=== PATIENT | male | born 1965 | race African-American/Black ===

== ENCOUNTER 2022-05-06 13:34 | Emergency (ER) | payer BC ==
[~2022-05-06] VITALS: Ht 185.4 cm; Wt 120.5 kg
[2022-05-06 13:37] VITALS: BP 151/87
[2022-05-06] MEDS: KETOROLAC TROMETHAMINE 30 MG/ML VIAL IM ONE ×2 (15:07→15:11)
[2022-05-06] MEDS: BACLOFEN 10 MG TABLET PO ONE ×2 (15:07→15:11)
[2022-05-06] MEDS: LIDOCAINE 5% TRANSDERMAL PATCH TD ONE ×2 (15:08→15:11)
[2022-05-06] MEDS ORDERED: OxyCODONE HCL/ACETAMINOPHEN 5-325 MG TABLET PO ONE (15:15)
== END 2022-05-06 19:39 | disposition left against medical advice (07) ==
LOC: EMS 13:40
DX: M54.31 Sciatica, right side (principal); F17.210 Nicotine dependence, cigarettes, uncomplicated
CPT/HCPCS: 99284; 93971; 82962; 73562; J1885